=== PATIENT | male | born 1955 | race Caucasian/White ===

== ENCOUNTER 2016-08-31 14:29 | Outpatient (CLI) | payer OTHER ==
[2016-06-22 14:41] VITALS: BP 118/74
[2016-08-31 15:56] LABS: eGFR (African) > 60; eGFR (Non-African) > 60
--- NOTE | 2016-09-01 10:47 | OP Clinic Progress Note ---
REFERRING PHYSICIAN: Dr. Hortensia Noe REASON FOR VISIT: This 60-year-old male is seen in the clinic with nasal problems. He is accompanied by a farmhand whose first name is Carolee. The patient is somewhat disheveled and has a small hebert and mustache. He is a mouth breather during the entire time. His nasal tip is bent somewhat to the left side. The right nasal passage is nearly totally obstructed with right nasal septal deviation to some degree and also associated with the nasal deformity. He has diffuse rhinitis. He is having crusting. A 0 and 30-degree ZEISS endoscope was used. He has diffuse rhinitis. I do not see pus and I do not see polyps today. He has dripping out of his nostrils. Again, the patient's major complaint is dripping from his nostrils and diffuse rhinitis. Also of note, he does have scabbing and crusting and pasty skin consistent with low-grade fungal dermatitis. Clinically, he also has headaches overlying the forehead or ethmoid areas bilaterally. Overall, patient has diffuse rhinitis with rhinorrhea as the main issues. Currently, he is taking Keflex with zero improvement of his headaches or the rhinitis. IMPRESSION: There may be a reasonable probability that he has a fungal rhinitis along with his clinical fungal dermatitis of his face. PLAN: I have given him Diflucan 100 mg 3 times a week for 3 weeks. We will check on his liver function tests and I advised him to not being drinking alcohol. He understands the deleterious effects of it along with the Diflucan. He will also get a chemistry profile and CT scan of the sinuses. I will see him back in about 3 weeks for a re-evaluation. cc: Dr. Hortensia AGUDELO
== END 2016-08-31 14:30 ==
LOC: ENT 14:29
PROVIDERS: ATTEND Otolaryngology
DX: J31.0 Chronic rhinitis (principal)
CPT/HCPCS: 36415; 80053; G0463

== ENCOUNTER 2016-09-06 10:52 | Outpatient (CLI) | payer OTHER ==
[2016-06-22 14:41] VITALS: BP 118/74
--- NOTE | 2016-09-06 15:03 | Diagnostic Imaging Report ---
[facility] [address] [facility] [address] [place], [place]. [address] Report Submission Date: Sep 06, 2016 11:44:27 AM BROKE MAN Patient Study Name: NOEL YING Date: Sep 06, 2016 11:06:45 AM BROKE MAN Modality Type: CT\SR Gender: M Description: CT MAXILLOFACIAL W/O D : 51 Institution: [facility] Physician CARMEN JENNINGS CT of the paranasal sinuses CLINICAL HISTORY: Septal deviation. TECHNIQUE: CT of the paranasal sinuses is performed in contiguous axial slices with sagittal and coronal reconstructions. FINDINGS: Mucosal thickening is present in the maxillary sinuses bilaterally with patchy opacification of the ethmoid air cells. There is minimal mucosal thickening in the frontal and sphenoid sinuses. There is no air-fluid level or bony destruction. Nasal septum is deviated to the right with right septal spur contacting the lateral wall of the nasal cavity and the right inferior turbinate. Maxillary ostium is occluded by soft tissue density material bilaterally. IMPRESSION: Deviated nasal septum with right septal spur. Pansinusitis. Electronically signed on Sep 06, 2016 11:44:27 AM BROKE MAN by: Jcarlos AGUDELO
== END 2016-09-06 11:00 ==
LOC: RAD 10:52
PROVIDERS: ATTEND Otolaryngology
DX: J31.0 Chronic rhinitis (principal)
CPT/HCPCS: 70486

== ENCOUNTER 2016-09-28 13:55 | Outpatient (CLI) | payer OTHER ==
[2016-06-22 14:41] VITALS: BP 118/74
--- NOTE | 2016-10-03 11:30 | OP Clinic Progress Note ---
REFERRING PHYSICIAN: Dr. Hortensia Noe REASON FOR VISIT: Mr. Brito is seen accompanied by his mother. He has had chronic rhinitis and postnasal drainage and some degree of cephalalgia overlying the ethmoid areas bilaterally, and fullness in his face. He does have a septal deviation and chronic rhinitis. On the last visit, it looks as if he may well have had more of a chronic fungal rhinitis. He does smoke. He is a mouth breather. After taking the Diflucan 100 mg 3 times a week, he notes that he is fairly markedly improved. His mother voluntarily acknowledges that he does seem to be quite noticeably better. Using zero and 30-degree endoscopes, both nostrils were examined. Again, he still has septal deviation with some spurs. He has inflamed nasal membranes. All these are somewhat better than before. PLAN: I went over pros and cons of possible surgery, potential benefits and risks associated with it with no guarantee of improvement. Also went over the benefits of stopping smoking and the deleterious effects of it if he does not. With his permission and understanding of the potential hepatic issues, he was given another 100 mg of Diflucan, number 12, 1 on Monday, Monday, and Monday to take for this next month. I am not giving him a specific appointment. If he feels like he relapses or takes an interest in some sinonasal surgery, he can return. His mother volunteered information that maybe 60 years ago, she had sinonasal surgery and does tend to breathe better through her nose. She also feels like parts are falling out of her nose. She is asked to make and appointment on her own to come see me in the somewhat near future. cc: Dr. Hortensia AGUDELO
== END 2016-09-28 13:56 ==
LOC: ENT 13:55
PROVIDERS: ATTEND Otolaryngology
DX: J31.0 Chronic rhinitis (principal)
CPT/HCPCS: G0463

== ENCOUNTER 2016-12-07 15:51 | Outpatient (CLI) | payer OTHER ==
[2016-06-22 14:41] VITALS: BP 118/74
[2016-12-07 16:14] LABS: BASOPHILS % 0.6 (0.0-1.5); MEAN CORPUSCULAR HEMOGLOBIN 33.8 pg (28.0-34.0); MEAN CORPUSCULAR VOLUME 94.3 fl (80.0-100.0); MONOCYTES % 9.8 % (0.0-11.0); NEUTROPHILS # 4.2 # k/uL (1.4-7.7)
[2016-12-07 16:29] LABS: eGFR (African) > 60; eGFR (Non-African) > 60
--- NOTE | 2016-12-08 00:58 | Diagnostic Imaging Report ---
OLIVIA BORRERO [facility] [address] [facility] [address] [place], [place]. [address] Report Submission Date: Dec 07, 2016 5:33:21 PM CDT Patient Study Name: NOEL YING Date: Dec 07, 2016 4:05:23 PM CDT Modality Type: CR Gender: M Description: ABDOMEN : 51 Institution: [facility] Physician: OLIVIA BORRERO Examination: Abdomen History: Nausea vomiting Findings: 2 views obtained of the abdomen demonstrates dilated loops of small bowel. Stool and air throughout the large bowel but not abnormally dilated. Pelvic phleboliths. No overt air fluid level or free air given technique. Degenerative changes of the lumbar spine. Impression: Scattered dilated loops small bowel. Ileus vs obstruction - consider obtaining CT Abdomen/pelvis to further evaluate. Electronically signed on Dec 07, 2016 5:33:21 PM CDT by: Carlos AGUDELO
== END 2016-12-07 15:52 ==
LOC: RAD 15:51
PROVIDERS: ATTEND Family Medicine
DX: R11.0 Nausea (principal)
CPT/HCPCS: 36415; 74000; 80053; 85025

== ENCOUNTER 2017-05-27 16:39 | Inpatient (IN) | payer OTHER ==
--- NOTE | 2017-05-27 17:04 | ED Physician Documentation ---
General Adult - HISTORIAN Historian: patient - HPI Stated Complaint: cough Chief Complaint: Cough/ Upper Respiratory Onset: other (per sister cough and diarrhea x 2 weeks) Timing: worse Severity: moderate Further Comments: yes (mother at bedside states he was in the hospital recently for illness (not current symptoms) and had "a bunch of tests to see if he had a stroke" and she states they were not told he did or did not have a stroke. He has a cough and he has had diarrhea for two weeks. Not sure if he has had a fever. no chest pain) Last known Well Code/Unknown Code: Unknown - ROS CONST: recent illness. denies: fever, sweating EYES/ENT: denies: problems with vision, sore throat, nasal drainage, nasal congestion CVS/RESP: shortness of breath, cough. denies: chest pain GI/: nausea, diarrhea. denies: abdominal pain, problems urinating, vomiting MS/SKIN/LYMPH: none NEURO/PSYCH: denies: headache, dizziness - PAST HX Past History: other (Bipolar, seizures, HTN, ETOH, DJD, Depression and anxiety, Chronic back pain ) Other History: none Surgeries/Procedures: other Immunizations: referred to PCP Allergies/Adverse Reactions: Allergies Allergy/AdvReac Type Severity Reaction Status Date / Time acetaminophen Allergy Unknown Verified 05/27/17 17:02 aspirin Allergy Unknown Verified 05/27/17 17:02 haloperidol lactate Allergy Unknown Verified 05/27/17 17:02 lorazepam Allergy Unknown Verified 05/27/17 17:02 Home Medications: Ambulatory Orders Medication Instructions Recorded Benztropine Mesylate 1 mg PO HS u2 04/19/17 Bupropion HCl [Bupropion Xl] 150 mg PO DAILY u2 04/19/17 Bupropion HCl [Bupropion Xl] 300 mg PO DAILY u2 04/19/17 Hydroxyzine HCl [Hydroxyzine HCl] 10 mg PO HS 05/27/17 Paliperidone Palmitate [Invega 156 mg IM DIRECTED 05/27/17 Sustenna] Polyethylene Glycol 3350 [Miralax] 17 gm PO D 05/27/17 Propranolol HCl [Inderal] 20 mg PO TID PRN 05/27/17 diphenhydrAMINE HCL [Benadryl] 25 mg PO QSHIFT PRN 05/27/17 - SOCIAL HX Smoking History: cigarettes Alcohol Use: occasionally Drug Use: none - FAMILY HX Family History: Yes - VITAL SIGNS Vital Signs: Vital Signs Temp Pulse Resp BP Pulse Ox 118/74 06/22/16 14:40 - REVIEWED ASSESSMENTS Nursing Assessment Reviewed: Yes Vitals Reviewed: Yes Progress - Progress Progress: Per labs and possible pneumonia and increased WBC will admit pt for meds ED Results Lab/Radiology - Radiology Radiology Impressions: Chest 2 views History: Cough Findings: Emphysema and bibasilar reticular opacities are observed. There is no pleural effusion. Heart size is normal. Impression: 1. Emphysema. 2. Bibasilar reticular opacities likely represent bronchitis and atelectasis. Early bronchopneumonia cannot be excluded. Electronically signed on May 27, 2017 6:18:07 PM RETENTION MANAGER by: Riccardo Kamara General Adult Physical Exam - PHYSICAL EXAM GENERAL APPEARANCE: no distress EENT: eye inspection normal NECK: normal inspection RESPIRATORY: wheezes, rales CVS: reg rate & rhythm, heart sounds normal, tachycardia ABDOMEN: soft, normal bowel sounds, distended SKIN: warm/dry, normal color EXTREMITIES: non-tender, normal range of motion NEURO: oriented X3, CN's nml as tested, motor nml, sensation nml, mood/affect nml Discharge Clincal Impression: Pneumonia Qualifiers: Pneumonia type: due to unspecified organism Lung location: middle lobe of lung Referrals: Hortensia Noe MD [Primary Care Provider] - 2 Days Condition: Stable Disposition: 09 ADMITTED INPATIENT Decision to Admit: [id number] Date of Decison to Admit: 05/27/17 Decision Time: 18:37
[2017-05-27] MEDS ORDERED: LEVALBUTEROL HCL 1.25 MG/3 ML AMPUL.NEB NEB ONE (17:06)
[2017-05-27] MEDS ORDERED: 0.9 % SODIUM CHLORIDE 1,000 ML IV ONE (17:06)
[2017-05-27 17:42] LABS: MEAN CORPUSCULAR HEMOGLOBIN 31.6 pg (28.0-34.0); MEAN CORPUSCULAR VOLUME 93.3 fl (80.0-100.0)
[2017-05-27 18:15] LABS: eGFR (African) > 60; eGFR (Non-African) > 60
[2017-05-27] MEDS ORDERED: LEVOFLOXACIN 500MG/D5W 100ML 500 MG in PREMIX BAG 1 BAG IV ONE (18:24)
[2017-05-27] MEDS ORDERED: diphenhydrAMINE HCL 25 MG TABLET PO PRN (19:07)
[2017-05-27] MEDS ORDERED: PROPRANOLOL HCL 20 MG TABLET PO PRN (19:07)
[2017-05-27] MEDS ORDERED: 0.9 % SODIUM CHLORIDE 1,000 ML IV SCH (19:30)
--- NOTE | 2017-05-27 19:31 | Diagnostic Imaging Report ---
EVON LIM [facility] [address] [facility] [address] [place], [place]. [address] Report Submission Date: May 27, 2017 6:18:07 PM ORCHID HAND Patient Study Name: NOEL YING Date: May 27, 2017 5:56:42 PM ORCHID HAND Modality Type: CR Gender: M Description: CHEST : 51 Institution: [facility] Physician: EVON LIM Chest 2 views History: Cough Findings: Emphysema and bibasilar reticular opacities are observed. There is no pleural effusion. Heart size is normal. Impression: 1. Emphysema. 2. Bibasilar reticular opacities likely represent bronchitis and atelectasis. Early bronchopneumonia cannot be excluded. Electronically signed on May 27, 2017 6:18:07 PM ORCHID HAND by: Noel AGUDELO
--- NOTE | 2017-05-27 19:35 | Diagnostic Imaging Report ---
EVON LIM [facility] [address] [facility] [address] [place], [place]. [address] Report Submission Date: May 27, 2017 7:31:51 PM FILTER CLOTH MAKER Patient Study Name: NOEL YING Date: May 27, 2017 7:15:37 PM FILTER CLOTH MAKER Modality Type: CT\SR Gender: M Description: CT ANGIOGRAPHY CHEST 7 : 51 Institution: [facility] Physician: EVON LIM CT chest with contrast PE protocol. History: Elevated d-dimer. Cough Technique: Transaxial computed tomography images of the chest were obtained following the uneventful administration contrast according to CT PE protocol. Coronal and sagittal 3D mip images were obtained as part of the examination. Findings: The heart size is normal. The aorta is of normal course and caliber. There is no evidence of pulmonary embolism. There is atherosclerosis of the aorta . There is underlying centrilobular emphysematous changes present within the lungs. There is mild lingular and left basilar infiltrate present with mild bronchial wall thickening present lower lobe suggesting evidence of chronic bronchitis. There is no large pleural effusion or pneumothorax identified. Limited views the upper abdomen are unremarkable. The osseous structures are normal. Impression: 1. No evidence of pulmonary embolism. 2. Emphysematous change with evidence of chronic bronchitis with mild lingular segment and left lower lobe infiltrate. 3. Atherosclerosis. Electronically signed on May 27, 2017 7:31:51 PM FILTER CLOTH MAKER by: Jomar Burch [facility] HOSPITALMamta
[2017-05-27] MEDS: 0.9 % SODIUM CHLORIDE 1,000 ML IV SCH (19:52)
[2017-05-27] MEDS ORDERED: LEVOFLOXACIN 500MG/D5W 100ML 100 ML IV ONE (20:00)
[2017-05-27] MEDS: PANTOPRAZOLE SODIUM 40 MG TABLET PO SCH (21:14)
[2017-05-27] MEDS: LEVALBUTEROL HCL 1.25 MG/3 ML AMPUL.NEB NEB SCH (21:15)
[2017-05-27] MEDS: MONTELUKAST SODIUM 10 MG TABLET PO SCH (21:23)
[2017-05-27] MEDS: DOCUSATE SODIUM 100 MG CAPSULE PO SCH (21:23)
[2017-05-27 22:21] VITALS: BMI 29.0
[2017-05-28] MEDS ORDERED: LEVALBUTEROL HCL 1.25 MG/3 ML AMPUL.NEB NEB ONE ×2 (01:22→05:42)
[2017-05-28] MEDS: LEVALBUTEROL HCL 1.25 MG/3 ML AMPUL.NEB NEB SCH ×2 (01:27→06:17)
[2017-05-28] MEDS: IPRATROPIUM/ALBUTEROL SULFATE 3 ML AMPUL.NEB NEB SCH ×4 (01:30→22:18)
[2017-05-28] MEDS: PANTOPRAZOLE SODIUM 40 MG TABLET PO SCH (06:22)
[2017-05-28] MEDS: 0.9 % SODIUM CHLORIDE 1,000 ML IV SCH ×3 (06:30→17:47)
[2017-05-28 07:29] LABS: BASOPHILS % 0.4 (0.0-1.5); EOSINOPHILS % 0.6 % (0.0-6.8); MEAN CORPUSCULAR HEMOGLOBIN 31.6 pg (28.0-34.0); MEAN CORPUSCULAR VOLUME 93.8 fl (80.0-100.0)
[2017-05-28 07:42] LABS: eGFR (African) > 60; eGFR (Non-African) > 60
[2017-05-28] MEDS ORDERED: 0.9 % SODIUM CHLORIDE 50 ML IV ONE (08:05)
--- NOTE | 2017-05-28 08:12 | History and Physical Report ---
History of Present Illnes - History of Present Illness Reason for Visit: Pneumonia History of Present Illness: This is a 61 year old male patient of Dr. Costa who presented to the ER last evening with c/o cough and generalized weakness. He has felt flushed, but has not checked his temperature. He says that he has not felt well for about a week and a half, but has not sought out any medical care. Last evening, he was feeling worse and was brought to the ER by his mother. His d-dimer was elevated , and a CT chest with contrast was performed, and although he did not have a PE , he was noted to have a LLL pneumonia. It is of note that he was admitted to last month after experiencing mental status changes. He was noted on that hospitalization to have experienced a subarachnoid hemorrhage. Interval CT showed decrease in size of this lesion, and he was placed on a 7 day course of Keppra. He did not have any seizure activity during that hospitalization, although his bupropion was decreased to 150 mg a day due to the risk of lowering his seizure threshold. Neurosurgery was consulted, however he was treated conservatively and did not have any surgery. - Past Medical History Cardiac: HTN. denies: CAD, CHF, Hyperlipidemia, Valve insufficiency Pulmonary: Bronchitis. denies: Asthma, COPD Psych: Depression, Other (alcohol dependency) Musculoskeletal: Chronic low back pain ENT: Allergic rhinitis Renal/: Benign prostatic enlarg. - Past Surgical History Past Surgical History: Appendectomy - Past Social History Smoke: 1 pack per day (over), No Occupation: disabled Alcohol: Heavy Drugs: None Lives: Alone Domestic Violence: Negative - Health Maintenance Health Maintenance: Cholesterol, Influenza Vaccine, Pneumococcal Vaccine, Colonoscopy Influenza Vaccine: Current for this Influenza Season Pneumonia Vaccine: Yes Resuscitation Status: Resusciation Status Resuscitation Status Full Code Review of Systems - Review of Systems Constitutional: Fever, Chills Eyes: pain (chronic low back) ENT: negative: Ear Pain, Ear Discharge Respiratory: Cough, Shortness of Breath Cardiovascular: Palpitations. negative: Chest Pain Gastrointestinal: negative: Nausea, Vomiting Genitourinary: negative: Dysuria Musculoskeletal: Back Pain. negative: Neck Pain, Shoulder Pain Skin: negative: Rash Neurological: Weakness, Change in Speech - Medications/Allergies Allergies/Adverse Reactions: Allergies Allergy/AdvReac Type Severity Reaction Status Date / Time acetaminophen Allergy Unknown Verified 05/27/17 17:02 aspirin Allergy Unknown Verified 05/27/17 17:02 haloperidol lactate Allergy Unknown Verified 05/27/17 17:02 lorazepam Allergy Unknown Verified 05/27/17 17:02 Home Medications: Home Medications Hydroxyzine HCl [Hydroxyzine HCl] 10 mg PO HS 05/27/17 Paliperidone Palmitate [Invega Sustenna] 156 mg IM DIRECTED 05/27/17 Polyethylene Glycol 3350 [Miralax] 17 gm PO D 05/27/17 Propranolol HCl [Inderal] 20 mg PO TID PRN 05/27/17 diphenhydrAMINE HCL [Benadryl] 25 mg PO QSHIFT PRN 05/27/17 Current Inpatient Medications: Current Inpatient Medications Albuterol/Ipratropium (Duoneb) 3 ml NEB QID [facility] Bupropion HCl (Wellbutrin Sr) 450 mg PO BID [facility]ONATHAN Buspirone HCl (Buspar) 15 mg PO BID [facility] Ceftriaxone Sodium (Rocephin) 1 gm IV QD [facility] Diphenhydramine HCl (Benadryl) 25 mg PO QSHIFT PRN PRN Reason: Allergy Symptoms Docusate Sodium (Colace) 100 mg PO BID [facility] Last Admin: 05/27/17 21:23 Dose: 100 mg Ergocalciferol (Vitamin D2) 50,000 unit PO twice a week [facility] Hydrochlorothiazide (Hydrodiuril) 25 mg PO DAILY [facility] Hydroxyzine HCl (Atarax) 25 mg PO HS [facility] Sodium Chloride (Normal Saline) 1,000 mls @ 125 mls/hr IV Q8H [facility] Last Admin: 05/28/17 06:30 Dose: 125 mls/hr Azithromycin 250 mg/ Sodium (Chloride) 250 mls @ 125 mls/hr IV Q24H [facility] Stop: 06/07/17 07:59 Loratadine (Claritin) 10 mg PO DAILY [facility] Montelukast Sodium (Singulair) 10 mg PO HS [facility] Last Admin: 05/27/17 21:23 Dose: 10 mg Pantoprazole Sodium (Protonix) 40 mg PO 0700 [facility] Last Admin: 05/28/17 06:22 Dose: 40 mg Polyethylene Glycol (Miralax) 17 gm PO D [facility] Pregabalin (Lyrica) 150 mg PO BID [facility] Propranolol HCl (Inderal) 20 mg PO TID PRN PRN Reason: Anxiety Propranolol HCl (Inderal) 40 mg PO DAILY [facility]ONATH[facility] Exam - Exam Vital Signs: Vital Signs (72 hours) 05/27/17 05/27/17 05/27/17 19:03 19:13 21:00 Temperature 97.1 F L Pulse Rate 129 H 133 H Pulse Rate [ 128 H Pulse ox] Respiratory 18 Rate Blood Pressure [Left Arm] Blood Pressure 126/82 [Right Arm] O2 Sat by Pulse 95 94 Oximetry 05/27/17 05/28/17 05/28/17 22:00 00:00 01:28 Temperature 97.1 F L 97.9 F Pulse Rate 133 H 128 H 127 H Pulse Rate [ 128 H 127 H Pulse ox] Respiratory Rate Blood Pressure 118/74 [Left Arm] Blood Pressure 126/82 140/64 [Right Arm] O2 Sat by Pulse 94 95 Oximetry 05/28/17 05/28/17 04:00 06:00 Temperature 98.0 F Pulse Rate 116 H 117 H Pulse Rate [ 117 H Pulse ox] Respiratory Rate Blood Pressure [Left Arm] Blood Pressure 138/68 [Right Arm] O2 Sat by Pulse 94 Oximetry General: Alert, Oriented to Person, Cooperative, Discheveled HEENT: Atraumatic, PERRLA, EOMI, Edentulous Neck: No: Stridor, Rigidity Carotids: no bruits Thyroid: no masses Lungs: Wheezes, Prolonged Expiration, Decreased Air Movement Cardiovascular: Regular rate, Tachycardia Murmur: No: Systolic Murmur Abdomen: Normal bowel sounds, Soft, No tenderness, Other (RLQ scar from appendectomy) Genitourinary: No: Right Inguinal Hernia, Left Inguinal Hernia Male Genitourinary: No: Scrotal Edema Integumentary: Normal, Warm Extremities: No clubbing, No cyanosis, No edema Neurological: Other (slowed speech) Psych/Mental Status: Other (sleepy) - Laboratory Results Laboratory Results: Laboratory Results 05/27/17 05/28/17 05/28/17 19:20 07:25 07:25 WBC 8.80 RBC 4.16 Hgb 13.1 Hct 39.0 MCV 93.8 MCH 31.6 MCHC 33.7 RDW 13.0 Plt Count 242 Neut % (Auto) 79.5 H Lymph % (Auto) 8.5 L [place] % (Auto) 7.0 Eos % (Auto) 0.6 Baso % (Auto) 0.4 Neut # (Auto) 7.0 Lymph # (Auto) 0.8 [place] # (Auto) 0.6 Eos # (Auto) 0.0 Baso # (Auto) 0.0 Reactive Lymphs % 4.0 Reactive Lymphs # 0.4 PT 11.3 INR 1.08 Sodium 133 L Potassium 3.2 L Chloride 97 L Carbon Dioxide 26 BUN 22 H Creatinine 0.80 Estimated Creat Clear 109 Est GFR ( Amer) > 60 Est GFR (Non-Af Amer) > 60 Glucose 109 H Calcium 8.7 Total Bilirubin 0.6 AST 37 ALT 43 Alkaline Phosphatase 78 Total Protein 6.4 Albumin 3.0 L Assessment/Plan - Assessment/Plan (1) Pneumonia Status: Acute Current Visit: Yes Qualifiers: Pneumonia type: due to unspecified organism Laterality: left Lung location: lower lobe of lung Qualified Code(s): J18.1 - Lobar pneumonia, unspecified organism Assessment: On Rocephin and Azithromycin (2) Alcohol abuse Status: Acute Current Visit: Yes Assessment: Start Thiamine at 100 mg/day Watch for any evidence of alcohol withdrawal (patient denies that he has ever experienced this) and claims only to drink two drinks per day. (3) Subarachnoid hemorrhage Status: Acute Current Visit: Yes Assessment: Resolving Plan: Reviewed records from (4) Schizophrenia Status: Acute Current Visit: Yes Assessment: Currently on no antipsychotics, but has been on Invega Sustenna by Dr. Li in the past (5) Depression Status: Acute Current Visit: Yes Qualifiers: Depression Type: major depressive disorder Major depression recurrence: recurrent Active/Remission status: currently active Major depression episode severity: severe Psychotic features: with psychotic features Qualified Code(s): F33.3 - Major depressive disorder, recurrent, severe with psychotic symptoms Assessment: Continue bupropion at 450 mg/day (6) Bipolar 1 disorder Status: Acute Current Visit: Yes Assessment: Currently on no mood stabilizers due to poor compliance (7) Hypertension Status: Acute Current Visit: Yes Assessment: Continue propranolol (8) Tachycardia Status: Acute Current Visit: Yes Assessment: Likely due to pneumonia as well as nebulizer treatments (9) Elevated d-dimer Status: Acute Current Visit: Yes Assessment: Reviewed CT scan of the chest showing no PE VTE Assessment - RISK FACTOR SCORE VTE RISK FACTOR SCORES: AGE OVER 60 YEARS, ACUTE INFECTION OTHER THEN SEPSIS ( Started Lovenox) - RISK VTE MODERATE RISK: SCORE OF 2 (RISK PROXIMAL DVT 2-4%) PROPHYAXIS NEEDED
[2017-05-28] MEDS ORDERED: SALINE FLUSH 10 ML DISP.SYRIN IVF ONE (08:33)
[2017-05-28] MEDS ORDERED: 0.9 % SODIUM CHLORIDE 250 ML IV ONE (08:39)
[2017-05-28] MEDS ORDERED: AZITHROMYCIN 500 MG VIAL IV ONE (08:39)
[2017-05-28] MEDS ORDERED: IPRATROPIUM/ALBUTEROL SULFATE 3 ML AMPUL.NEB NEB ONE ×3 (08:44→16:58)
[2017-05-28] MEDS: BUSPIRONE HCL 5 MG TABLET PO SCH ×3 (08:47→19:33)
[2017-05-28] MEDS: HYDROCHLOROTHIAZIDE 25 MG TABLET PO SCH ×2 (08:48→08:58)
[2017-05-28] MEDS: LORATADINE 10 MG TABLET PO SCH ×2 (08:48→08:58)
[2017-05-28] MEDS: buPROPion 150 MG TABLET.ER PO SCH ×3 (08:49→19:32)
[2017-05-28] MEDS: PREGABALIN 50 MG CAPSULE PO SCH ×3 (08:49→19:33)
[2017-05-28] MEDS: PROPRANOLOL HCL 20 MG TABLET PO SCH ×2 (08:49→08:58)
[2017-05-28] MEDS: DOCUSATE SODIUM 100 MG CAPSULE PO SCH ×2 (08:50→19:33)
[2017-05-28] MEDS: ENOXAPARIN SODIUM 30 MG/0.3 ML DISP.SYRIN SQ SCH (08:50)
[2017-05-28] MEDS: POLYETHYLENE GLYCOL 3350 17 GM POWD.PACK PO SCH (08:51)
[2017-05-28] MEDS: cefTRIAXone SODIUM 1 GM VIAL IV SCH (08:51)
[2017-05-28] MEDS: AZITHROMYCIN 250 MG in 0.9 % SODIUM CHLORIDE 250 ML IV SCH (09:57)
[2017-05-28] MEDS: MONTELUKAST SODIUM 10 MG TABLET PO SCH (19:33)
[2017-05-28] MEDS: HYDROXYZINE HCL 25 MG TABLET PO SCH (19:33)
[2017-05-29] MEDS: 0.9 % SODIUM CHLORIDE 1,000 ML IV SCH ×3 (00:57→19:46)
[2017-05-29] MEDS ORDERED: IPRATROPIUM/ALBUTEROL SULFATE 3 ML AMPUL.NEB NEB ONE (05:56)
[2017-05-29] MEDS: PANTOPRAZOLE SODIUM 40 MG TABLET PO SCH (06:09)
[2017-05-29] MEDS: BUSPIRONE HCL 5 MG TABLET PO SCH (08:59)
[2017-05-29] MEDS: DOCUSATE SODIUM 100 MG CAPSULE PO SCH ×2 (08:59→19:48)
[2017-05-29] MEDS: LORATADINE 10 MG TABLET PO SCH (08:59)
[2017-05-29] MEDS: PROPRANOLOL HCL 20 MG TABLET PO SCH (09:00)
[2017-05-29] MEDS: HYDROCHLOROTHIAZIDE 25 MG TABLET PO SCH (09:00)
[2017-05-29] MEDS: ENOXAPARIN SODIUM 30 MG/0.3 ML DISP.SYRIN SQ SCH (09:01)
[2017-05-29] MEDS: buPROPion 150 MG TABLET.ER PO SCH (09:01)
[2017-05-29] MEDS: POLYETHYLENE GLYCOL 3350 17 GM POWD.PACK PO SCH (09:02)
[2017-05-29] MEDS: PREGABALIN 50 MG CAPSULE PO SCH ×2 (09:07→19:52)
[2017-05-29] MEDS: IPRATROPIUM/ALBUTEROL SULFATE 3 ML AMPUL.NEB NEB SCH ×4 (09:10→20:02)
[2017-05-29 10:02] LABS: MEAN CORPUSCULAR HEMOGLOBIN 31.6 pg (28.0-34.0); MEAN CORPUSCULAR VOLUME 94.6 fl (80.0-100.0)
[2017-05-29] MEDS: AZITHROMYCIN 250 MG in 0.9 % SODIUM CHLORIDE 250 ML IV SCH (10:15)
[2017-05-29 10:19] LABS: eGFR (African) > 60; eGFR (Non-African) > 60
[2017-05-29 10:38] LABS: EOSINOPHILS % 1 % (0-7); MONOCYTES % 11 % (0-11); SEGMENTED NEUTROPHILS % 70 % (39-79)
[2017-05-29] MEDS ORDERED: POTASSIUM CHLORIDE 20 MEQ TABLET.ER PO ONE (12:44)
[2017-05-29] MEDS: cefTRIAXone SODIUM 1 GM VIAL IV SCH (12:46)
[2017-05-29] MEDS: ERGOCALCIFEROL (VITAMIN D2) 50,000 UNIT CAPSULE PO SCH ×2 (12:57→15:47)
[2017-05-29] MEDS: cefTRIAXone SODIUM 1 GM in 0.9 % SODIUM CHLORIDE 100 ML IV SCH (13:01)
--- NOTE | 2017-05-29 13:57 | Diagnostic Imaging Report ---
[facility]MED SURG [facility] [address] [facility] [address] [address] Report Submission Date: May 29, 2017 9:01:18 AM FELT HAT MELLOWING MACHINE OPERATOR Patient Study Name: NOEL YING Date: May 29, 2017 8:24:52 AM FELT HAT MELLOWING MACHINE OPERATOR Modality Type: CR Gender: M Description: CHEST : 51 Institution: [facility] Physician: CHARLINE KAPADIA/MED SURG Examination: PA and lateral chest. History: Evaluate lung rosa. Comparison exam: 27 May 2017 Findings: PA lateral chest demonstrate a prominent cardiac and mediastinal silhouette. Continued parenchymal haziness involving the lower lungs, left greater than right. Apical emphysematous changes. Osseous structures are appropriate for age. Impression: Emphysematous changes. Persistent lingular/ left lower lung infiltrate. Electronically signed on May 29, 2017 9:01:18 AM FELT HAT MELLOWING MACHINE OPERATOR by: Carlos AGUDELO
--- NOTE | 2017-05-29 14:06 | Diagnostic Imaging Report ---
[facility] [address] [facility] [address] [place] [address]. [address] Report Submission Date: May 29, 2017 2:04:54 PM ASSEMBLY MEMBER Patient Study Name: NOEL YING Date: May 29, 2017 1:29:41 PM ASSEMBLY MEMBER Modality Type: CT\SR Gender: M Description: CT BRAIN W/O CONTRAST : 51 Institution: [facility] Physician: [facility] /MED SURG Examination: CT head without contrast History: Mental status changes Comparison exam: None available Technique: Noncontrast head CT protocol. Findings: Ventricles and sulci are prominent. Cerebrocerebellar parenchyma demonstrates periventricular low attenuation consistent with small vessel disease. No evidence for parenchymal hemorrhage. No evidence for mass or mass effect. No midline shift. No extra axial fluid collections. Partial visualization of the paranasal sinuses demonstrate scattered mucous thickening. Mastoid air cells, orbits, skull and scalp without gross irregularity. Impression: Age related changes. No acute parenchymal process. No hemorrhage. Correlation with prior studies recommended when become available. Electronically signed on May 29, 2017 2:04:54 PM ASSEMBLY MEMBER by: Carlos AGUDELO
[2017-05-29] MEDS: methylPREDNISolone SOD SUCC 40 MG/ML VIAL IVP SCH ×2 (15:34→19:53)
[2017-05-29] MEDS ORDERED: BUSPIRONE HCL 5 MG TABLET PO PRN (16:59)
--- NOTE | 2017-05-29 17:01 | Inpatient Progress Note ---
Subjective - Required Recertification Statement I anticipate X number of days because-include discharge plan: 3 - Review of Systems Subjective: Patient more somnolent today. Denies pain. Thinks breathing is better. Objective - Exam Vitals and I&O: Vital Signs Temp 98.1 F 05/29/17 13:55 Pulse 87 05/29/17 13:55 Resp 24 05/29/17 13:55 BP 137/63 05/29/17 13:55 Pulse Ox 94 05/29/17 13:55 Intake & Output 05/28/17 05/29/17 05/29/17 23:59 11:59 23:59 Intake Total 1780 2700 100 Balance 1780 2700 100 Weight 81.647 kg 81.647 kg Intake: IV 650 2650 Left Hand 650 2650 Oral 1130 50 100 Other: Voiding Method Toilet # Voids 3 3 General: Alert, Oriented to Person, Oriented to Place, Cooperative, No acute distress Lungs: Wheezes, Rhonchi Cardiovascular: Regular rate - Results Results: Laboratory Results WBC 9.80 K/ul (4.00-12.00) 05/29/17 09:50 RBC 3.95 M/ul (3.90-5.20) 05/29/17 09:50 Hgb 12.5 g/dL (12.0-18.0) 05/29/17 09:50 Hct 37.3 % (37.0-53.0) 05/29/17 09:50 MCV 94.6 fl (80.0-100.0) 05/29/17 09:50 MCH 31.6 pg (28.0-34.0) 05/29/17 09:50 MCHC 33.4 g/dL (30.0-36.0) 05/29/17 09:50 RDW 13.2 % (11.3-14.3) 05/29/17 09:50 Plt Count 285 K/mm3 (130-400) 05/29/17 09:50 Neut % (Auto) 79.5 % (39.0-79.0) H 05/28/17 07:25 Lymph % (Auto) 8.5 % (16.0-50.0) L 05/28/17 07:25 Warrick % (Auto) 7.0 % (0.0-11.0) 05/28/17 07:25 Eos % (Auto) 0.6 % (0.0-6.8) 05/28/17 07:25 Baso % (Auto) 0.4 (0.0-1.5) 05/28/17 07:25 Neut # (Auto) 7.0 # k/uL (1.4-7.7) 05/28/17 07:25 Lymph # (Auto) 0.8 # k/uL (0.6-4.0) 05/28/17 07:25 Warrick # (Auto) 0.6 # k/uL (0.0-0.9) 05/28/17 07:25 Eos # (Auto) 0.0 # k/uL (0.0-0.6) 05/28/17 07:25 Baso # (Auto) 0.0 # k/uL (0.0-0.5) 05/28/17 07:25 Seg Neutrophils % 70 % (39-79) 05/29/17 09:50 Band Neutrophils % 1 % (0-12) 05/29/17 09:50 Lymphocytes % 13 % (16-50) L 05/29/17 09:50 Reactive Lymphs % 4.0 % (0.0-5.0) 05/28/17 07:25 Monocytes % 11 % (0-11) 05/29/17 09:50 Eosinophils % 1 % (0-7) 05/29/17 09:50 Reactive Lymphs # 0.4 # k/uL (0.0-0.8) 05/28/17 07:25 Reactive Lymphocytes 4 % (0-5) 05/29/17 09:50 Plt Morphology Comment Normal (NORMAL) 05/29/17 09:50 RBC Morph Comment Normal (NORMAL) 05/29/17 09:50 PT 11.3 Seconds (9.4-11.6) 05/27/17 19:20 INR 1.08 (0.9-1.2) 05/27/17 19:20 D-Dimer > 5000 ng/mL (6.0-682) H 05/27/17 17:29 Sodium 132 mmol/L (136-145) L 05/29/17 09:50 Potassium 3.2 mmol/L (3.5-5.1) L 05/29/17 09:50 Chloride 98 mmol/L (98-107) 05/29/17 09:50 Carbon Dioxide 28 mmol/L (22-30) 05/29/17 09:50 BUN 14 mg/dL (9-20) 05/29/17 09:50 Creatinine 0.70 mg/dL (0.66-1.25) 05/29/17 09:50 Estimated Creat Clear 124 05/29/17 09:50 Est GFR ( Amer) > 60 (60-) 05/29/17 09:50 Est GFR (Non-Af Amer) > 60 (60-) 05/29/17 09:50 Glucose 111 mg/dL (74-106) H 05/29/17 09:50 Calcium 8.7 mg/dL (8.4-10.2) 05/29/17 09:50 Total Bilirubin 0.6 mg/dL (0.2-1.3) 05/28/17 07:25 AST 37 U/L (15-46) 05/28/17 07:25 ALT 43 U/L (13-69) 05/28/17 07:25 Alkaline Phosphatase 78 U/L (38-126) 05/28/17 07:25 Troponin I < 0.03 ng/mL (0.03-0.06) L 05/27/17 17:29 NT-Pro-B Natriuret Pep 180.6 pg/mL (15.0-125.0) H 05/27/17 17:29 Total Protein 6.4 g/dL (6.3-8.2) 05/28/17 07:25 Albumin 3.0 g/dL (3.5-5.0) L 05/28/17 07:25 Assessment/Plan - Assessment/Plan (1) Pneumonia Status: Acute Current Visit: Yes Qualifiers: Pneumonia type: due to unspecified organism Laterality: left Lung location: lower lobe of lung Qualified Code(s): J18.1 - Lobar pneumonia, unspecified organism Plan: Suspect COPD playing a role in lungs. Start IV solumedrol and make duonebs q4hr. CXR no worse. Suspect his wellbutrin ordered on admission is causing him to be somnolent. Will stop and watch closely. (2) Subarachnoid hemorrhage Status: Chronic Current Visit: No Plan: REpeat CT of head negative today.
[2017-05-29] MEDS: HYDROXYZINE HCL 25 MG TABLET PO SCH (19:47)
[2017-05-29] MEDS: MONTELUKAST SODIUM 10 MG TABLET PO SCH (19:53)
[2017-05-29] MEDS ORDERED: buPROPion 150 MG TABLET.ER PO SCH (21:00)
[2017-05-29] MEDS ORDERED: ACETAMINOPHEN 325 MG TABLET PO PRN (21:05)
[2017-05-29] MEDS ORDERED: ACETAMINOPHEN 325 MG TABLET ONE (21:06)
[2017-05-30] MEDS: IPRATROPIUM/ALBUTEROL SULFATE 3 ML AMPUL.NEB NEB SCH ×6 (01:23→20:13)
[2017-05-30] MEDS: 0.9 % SODIUM CHLORIDE 1,000 ML IV SCH ×2 (04:43→11:01)
[2017-05-30] MEDS: methylPREDNISolone SOD SUCC 40 MG/ML VIAL IVP SCH ×3 (06:10→19:42)
[2017-05-30] MEDS: PANTOPRAZOLE SODIUM 40 MG TABLET PO SCH (06:10)
[2017-05-30 06:41] LABS: MEAN CORPUSCULAR VOLUME 94.6 fl (80.0-100.0)
[2017-05-30 07:19] LABS: SEGMENTED NEUTROPHILS % 81 % (39-79)
[2017-05-30 07:20] LABS: BASOPHILS % 1 % (0-2); EOSINOPHILS % 1 % (0-7); MONOCYTES % 4 % (0-11)
[2017-05-30 07:21] LABS: eGFR (African) > 60; eGFR (Non-African) > 60
--- NOTE | 2017-05-30 08:06 | Inpatient Progress Note ---
Subjective - Required Recertification Statement I anticipate X number of days because-include discharge plan: 2 - Review of Systems Subjective: Patient more awake and alert today. Talking more. Mild confusion. Denies SOB. Objective - Exam Vitals and I&O: Vital Signs Temp 97.6 F 05/30/17 06:00 Pulse 101 H 05/30/17 06:00 Resp 20 05/30/17 06:00 BP 126/65 05/30/17 06:00 Pulse Ox 96 05/30/17 06:00 Intake & Output 05/29/17 05/29/17 05/30/17 11:59 23:59 11:59 Intake Total 2950 1720 1220 Output Total 200 Balance 2950 1720 1020 Weight 81.647 kg 81.647 kg 180 kg Intake: IV 2900 1375 1100 Left Forearm 125 1100 Left Hand 2900 1250 Oral 50 345 120 Output: Urine 200 Stool 0 Other: Voiding Method Diaper Diaper # Voids 3 1 1 # Bowel Movements 0 General: Alert, Oriented to Person, Cooperative. No: Oriented to Place, Oriented to Time Lungs: Clear to auscultation, Normal air movement, Speaks full Sentences - Results Results: Laboratory Results WBC 9.40 K/ul (4.00-12.00) 05/30/17 06:10 RBC 3.92 M/ul (3.90-5.20) 05/30/17 06:10 Hgb 12.2 g/dL (12.0-18.0) 05/30/17 06:10 Hct 37.1 % (37.0-53.0) 05/30/17 06:10 MCV 94.6 fl (80.0-100.0) 05/30/17 06:10 MCH 31.0 pg (28.0-34.0) 05/30/17 06:10 MCHC 32.8 g/dL (30.0-36.0) 05/30/17 06:10 RDW 13.0 % (11.3-14.3) 05/30/17 06:10 Plt Count 287 K/mm3 (130-400) 05/30/17 06:10 Neut % (Auto) 79.5 % (39.0-79.0) H 05/28/17 07:25 Lymph % (Auto) 8.5 % (16.0-50.0) L 05/28/17 07:25 Chicot % (Auto) 7.0 % (0.0-11.0) 05/28/17 07:25 Eos % (Auto) 0.6 % (0.0-6.8) 05/28/17 07:25 Baso % (Auto) 0.4 (0.0-1.5) 05/28/17 07:25 Neut # (Auto) 7.0 # k/uL (1.4-7.7) 05/28/17 07:25 Lymph # (Auto) 0.8 # k/uL (0.6-4.0) 05/28/17 07:25 Chicot # (Auto) 0.6 # k/uL (0.0-0.9) 05/28/17 07:25 Eos # (Auto) 0.0 # k/uL (0.0-0.6) 05/28/17 07:25 Baso # (Auto) 0.0 # k/uL (0.0-0.5) 05/28/17 07:25 Seg Neutrophils % 81 % (39-79) H 05/30/17 06:10 Band Neutrophils % 2 % (0-12) 05/30/17 06:10 Lymphocytes % 11 % (16-50) L 05/30/17 06:10 Reactive Lymphs % 4.0 % (0.0-5.0) 05/28/17 07:25 Monocytes % 4 % (0-11) 05/30/17 06:10 Eosinophils % 1 % (0-7) 05/30/17 06:10 Basophils % 1 % (0-2) 05/30/17 06:10 Reactive Lymphs # 0.4 # k/uL (0.0-0.8) 05/28/17 07:25 Reactive Lymphocytes 4 % (0-5) 05/29/17 09:50 Plt Morphology Comment Normal (NORMAL) 05/30/17 06:10 RBC Morph Comment Normal (NORMAL) 05/30/17 06:10 PT 11.3 Seconds (9.4-11.6) 05/27/17 19:20 INR 1.08 (0.9-1.2) 05/27/17 19:20 D-Dimer > 5000 ng/mL (6.0-682) H 05/27/17 17:29 Sodium 134 mmol/L (136-145) L 05/30/17 06:10 Potassium 3.9 mmol/L (3.5-5.1) 05/30/17 06:10 Chloride 101 mmol/L (98-107) 05/30/17 06:10 Carbon Dioxide 26 mmol/L (22-30) 05/30/17 06:10 BUN 15 mg/dL (9-20) 05/30/17 06:10 Creatinine 0.70 mg/dL (0.66-1.25) 05/30/17 06:10 Estimated Creat Clear 275 05/30/17 06:10 Est GFR ( Amer) > 60 (60-) 05/30/17 06:10 Est GFR (Non-Af Amer) > 60 (60-) 05/30/17 06:10 Glucose 119 mg/dL (74-106) H 05/30/17 06:10 Calcium 8.3 mg/dL (8.4-10.2) L 05/30/17 06:10 Total Bilirubin 0.4 mg/dL (0.2-1.3) 05/30/17 06:10 AST 42 U/L (15-46) 05/30/17 06:10 ALT 62 U/L (13-69) 05/30/17 06:10 Alkaline Phosphatase 74 U/L (38-126) 05/30/17 06:10 Troponin I < 0.03 ng/mL (0.03-0.06) L 05/27/17 17:29 NT-Pro-B Natriuret Pep 180.6 pg/mL (15.0-125.0) H 05/27/17 17:29 Total Protein 5.3 g/dL (6.3-8.2) L 05/30/17 06:10 Albumin 2.5 g/dL (3.5-5.0) L 05/30/17 06:10 Assessment/Plan - Assessment/Plan (1) Pneumonia Status: Acute Current Visit: Yes Qualifiers: Pneumonia type: due to unspecified organism Laterality: left Lung location: lower lobe of lung Qualified Code(s): J18.1 - Lobar pneumonia, unspecified organism Plan: Add IS today. Lung sounds much improved on steroids and q4hr duonebs. Continue IV antibiotics until good PO intake. (2) Subarachnoid hemorrhage Status: Chronic Current Visit: No
[2017-05-30] MEDS ORDERED: BISACODYL 5 MG TABLET.DR PO PRN (08:09)
[2017-05-30] MEDS: AZITHROMYCIN 250 MG in 0.9 % SODIUM CHLORIDE 250 ML IV SCH (09:04)
[2017-05-30] MEDS: DOCUSATE SODIUM 100 MG CAPSULE PO SCH ×2 (09:09→19:44)
[2017-05-30] MEDS: LORATADINE 10 MG TABLET PO SCH (09:09)
[2017-05-30] MEDS: HYDROCHLOROTHIAZIDE 25 MG TABLET PO SCH (09:09)
[2017-05-30] MEDS: POLYETHYLENE GLYCOL 3350 17 GM POWD.PACK PO SCH (09:10)
[2017-05-30] MEDS: ENOXAPARIN SODIUM 30 MG/0.3 ML DISP.SYRIN SQ SCH (09:10)
[2017-05-30] MEDS: PREGABALIN 50 MG CAPSULE PO SCH ×2 (09:12→19:48)
[2017-05-30] MEDS: PROPRANOLOL HCL 20 MG TABLET PO SCH (09:13)
[2017-05-30] MEDS ORDERED: SALINE FLUSH 10 ML DISP.SYRIN IVF ONE (12:22)
[2017-05-30] MEDS: cefTRIAXone SODIUM 1 GM in 0.9 % SODIUM CHLORIDE 100 ML IV SCH (12:28)
[2017-05-30] MEDS: MONTELUKAST SODIUM 10 MG TABLET PO SCH (19:44)
[2017-05-30] MEDS: HYDROXYZINE HCL 25 MG TABLET PO SCH (19:44)
[2017-05-31] MEDS: 0.9 % SODIUM CHLORIDE 1,000 ML IV SCH (01:00)
[2017-05-31] MEDS: IPRATROPIUM/ALBUTEROL SULFATE 3 ML AMPUL.NEB NEB SCH ×4 (01:10→13:23)
[2017-05-31] MEDS: methylPREDNISolone SOD SUCC 40 MG/ML VIAL IVP SCH ×2 (05:45→13:22)
[2017-05-31] MEDS: PANTOPRAZOLE SODIUM 40 MG TABLET PO SCH (05:45)
[2017-05-31 06:45] LABS: MEAN CORPUSCULAR HEMOGLOBIN 30.9 pg (28.0-34.0); MEAN CORPUSCULAR VOLUME 93.7 fl (80.0-100.0)
[2017-05-31 06:55] LABS: eGFR (African) > 60; eGFR (Non-African) > 60
[2017-05-31 07:28] LABS: BASOPHILS % 1 % (0-2); EOSINOPHILS % 1 % (0-7); MONOCYTES % 5 % (0-11); SEGMENTED NEUTROPHILS % 80 % (39-79)
[2017-05-31] MEDS ORDERED: MAGNESIUM CITRATE 296 ML BOTTLE PO ONE (07:57)
[2017-05-31] MEDS: AZITHROMYCIN 250 MG in 0.9 % SODIUM CHLORIDE 250 ML IV SCH (08:57)
[2017-05-31] MEDS: LORATADINE 10 MG TABLET PO SCH (09:12)
[2017-05-31] MEDS: DOCUSATE SODIUM 100 MG CAPSULE PO SCH (09:12)
[2017-05-31] MEDS: PROPRANOLOL HCL 20 MG TABLET PO SCH (09:13)
[2017-05-31] MEDS: HYDROCHLOROTHIAZIDE 25 MG TABLET PO SCH (09:13)
[2017-05-31] MEDS: ENOXAPARIN SODIUM 30 MG/0.3 ML DISP.SYRIN SQ SCH (09:13)
[2017-05-31] MEDS: POLYETHYLENE GLYCOL 3350 17 GM POWD.PACK PO SCH (09:14)
[2017-05-31] MEDS: PREGABALIN 50 MG CAPSULE PO SCH (09:16)
--- NOTE | 2017-05-31 11:07 | Diagnostic Imaging Report ---
OLIVIA BORRERO [facility] [address] [facility].[address] [address] Report Submission Date: May 31, 2017 8:44:06 AM VEHICLE FARE COLLECTOR Patient Study Name: NOEL YING Date: May 31, 2017 8:24:09 AM VEHICLE FARE COLLECTOR Modality Type: US Gender: M Description: US ABD LIMITED : 51 Institution: [facility] Physician: OLIVIA BORRERO Examination: Ultrasound abdomen History: Possible sites. Bloating. Comparison exams: None available. Findings: Sonographic evaluation of the abdomen and all 4 quadrants does not demonstrate evidence for free fluid collection. No other gross abnormality identified. Impression: No evidence for free fluid/acites. Electronically signed on May 31, 2017 8:44:06 AM VEHICLE FARE COLLECTOR by: Carlos AGUDELO
--- NOTE | 2017-05-31 11:07 | Diagnostic Imaging Report ---
[facility]MED SURG [facility] [address] [facility] [address] [address] Report Submission Date: May 31, 2017 8:38:36 AM PIGMENT FURNACE TENDER Patient Study Name: NOEL YING Date: May 31, 2017 8:14:01 AM PIGMENT FURNACE TENDER Modality Type: CR Gender: M Description: ABDOMEN : 51 Institution: [facility] Physician: CHARLINE KAPADIA/MED SURG Examination: Obstruction series History: Abdominal discomfort Findings: 3 views obtained of the abdomen. Significant dilation of the large and small bowel. Air and stool throughout the large bowel. No suspicious calcifications projecting over the renal fossa or the lower pelvic region. pelvic phleboliths. Degenerative disease of the lumbar spine. Impression: Significant dilation/prominence of the large/small bowel - obstruction /high-grade ileus. Correlate clinically. Electronically signed on May 31, 2017 8:38:36 AM PIGMENT FURNACE TENDER by: Carlos AGUDELO
[2017-05-31] MEDS: cefTRIAXone SODIUM 1 GM in 0.9 % SODIUM CHLORIDE 100 ML IV SCH (12:29)
[2017-05-31] MEDS ORDERED: SALINE FLUSH 10 ML DISP.SYRIN IVF ONE ×2 (12:37→15:36)
--- NOTE | 2017-05-31 14:42 | Diagnostic Imaging Report ---
[facility] [address] [facility] [address] [place] [address]. [address] Report Submission Date: May 31, 2017 2:12:52 PM VASCULAR MANAGER Patient Study Name: NOEL YING Date: May 31, 2017 1:18:57 PM VASCULAR MANAGER Modality Type: CT\SR Gender: M Description: CT ABD & PELVIS W/ CON : 51 Institution: [facility] Physician: [facility]/MED SURG Examination: CT Abdomen/pelvis History: Bloating. Comparison exams: Plain film dated 31 May 2017 Technique: CT Abdomen/pelvis with IV protocol. Findings: Liver demonstrates diffuse low attenuation. No central lesion. Gallbladder contracted. No obvious gallstone. Spleen without abnormality. Kidneys are symmetric in size. No cortical or calyceal calcification. Cyst projecting off the inferior margin of the right kidney. 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 Ureters are nondilated in their course through the abdomen and pelvis. No central calcification. Bladder margin is within normal limits. Adrenal glands not enlarged. Abdominal aorta demonstrates peripheral described disease. No aneurysm. Cardiac silhouette not enlarged. Pericardial fluid. Significant dilatation of the mid abdominal small bowel associated with air- fluid levels. Maximum diameter of 4.4 cm. Transition point appears to be within the mid to distal small bowel region. Stool throughout the large bowel limiting sensitivity. Small amount of mesenteric inflammatory changes/stranding. No overt fluid collection. Surgical changes in the region of the cecum. Osseous structures demonstrate degenerative changes. Lung bases demonstrate bibasilar consolidative processes,left greater than right, associated with posterior pleural effusions. Impression: Small bowel obstruction - transition point midabdomen. Surgical consultation recommended if not already obtained. Pericardial effusion. Bibasilar infiltrates and effusions, left greater than right. Discussed findings with nurse Lorena at 1408 hours on 31 May 2017 CDT - She said she would contact Dr. Noe with the findings. Electronically signed on May 31, 2017 2:12:52 PM VASCULAR MANAGER by: Carlos AGUDELO
[2017-05-31 18:44] VITALS: BP 132/79
--- NOTE | 2017-05-31 20:07 | Discharge Summary ---
Discharge Summary - Discharge Sumary History of Present Illness: This is a 61 year old male patient of Dr. Costa who presented to the ER last evening with c/o cough and generalized weakness. He has felt flushed, but has not checked his temperature. He says that he has not felt well for about a week and a half, but has not sought out any medical care. Last evening, he was feeling worse and was brought to the ER by his mother. His d-dimer was elevated , and a CT chest with contrast was performed, and although he did not have a PE , he was noted to have a LLL pneumonia. It is of note that he was admitted to last month after experiencing mental status changes. He was noted on that hospitalization to have experienced a subarachnoid hemorrhage. Interval CT showed decrease in size of this lesion, and he was placed on a 7 day course of Keppra. He did not have any seizure activity during that hospitalization, although his bupropion was decreased to 150 mg a day due to the risk of lowering his seizure threshold. Neurosurgery was consulted, however he was treated conservatively and did not have any surgery. Condition at Discharge: Stable Home Medications: Ambulatory Orders Medication Instructions Recorded Benztropine Mesylate 1 mg PO HS u2 04/19/17 Bupropion HCl [Bupropion Xl] 150 mg PO DAILY u2 04/19/17 Bupropion HCl [Bupropion Xl] 300 mg PO DAILY u2 04/19/17 Hydroxyzine HCl 10 mg PO HS 05/27/17 Paliperidone Palmitate [Invega 156 mg IM DIRECTED 05/27/17 Sustenna] Polyethylene Glycol 3350 [Miralax] 17 gm PO D 05/27/17 Propranolol HCl [Inderal] 20 mg PO TID PRN 05/27/17 diphenhydrAMINE HCL [Benadryl] 25 mg PO QSHIFT PRN 05/27/17 Consultations this Visit: None Procedures this Visit: None Allergies/Adverse Reactions: Allergies Allergy/AdvReac Type Severity Reaction Status Date / Time acetaminophen Allergy Unknown Verified 05/27/17 17:02 aspirin Allergy Unknown Verified 05/27/17 17:02 haloperidol lactate Allergy Unknown Verified 05/27/17 17:02 lorazepam Allergy Unknown Verified 05/27/17 17:02 Discharge Summary: Patient was admitted to Acute Care for treatment of pneumonia and hypoxia. Treated with IV rocephin 1 gm daily and 5 days of IV zithromax. Blood cultures at 72 hours grew staph hominins. Patient also received IV solumedrol and scheduled duonebs. Wheezing responded well to this. He did experience some somnolance so wellbutrin was discontinued. This resolved. Abdomen noted to be distended. Patient with h/o alcoholism. Reported no BM in a week. Good bowel sounds. Dulcolax was given without results. On the day of transfer, abdomen more distended. He reported passing gas and smear of BM. Bowel sounds still hear. KUB and cT showed small bowel obstruction. WBC went back to 12,000 (however patient on solumedrol). Sodium dropped to 131 and LFT's very mildly elevated. NG inserted and patient transferred to [facility] for treatment. Hospital Course: Discharge Dx: SBO. pneumonia. Bipolar. h/o subarachnoid hemorrhage. Disp - [facility]
== END 2017-05-31 16:05 | disposition short-term general hospital (02) | DRG 193 ==
LOC: ED 16:39 → SOUTH 18:37
PROVIDERS: ADMIT Family Medicine; ATTEND Family Medicine
DX: J18.1 Lobar pneumonia, unspecified organism (principal); I60.9 Nontraumatic subarachnoid hemorrhage, unspecified; F33.3 Major depressive disorder, recurrent, severe with psychotic symptoms; R09.02 Hypoxemia; J43.9 Emphysema, unspecified; F17.210 Nicotine dependence, cigarettes, uncomplicated; I10 Essential (primary) hypertension; F10.20 Alcohol dependence, uncomplicated; R00.0 Tachycardia, unspecified; R79.1 Abnormal coagulation profile
CPT/HCPCS: 36415; 70450; 71020; 71260; 74000; 74177; 76705; 80048; 80053; 83880; 84484; 85025; 85027; 85379; 85610; 87040; 87186; 93005; 97116; 97166; 97530; 97535; A9270; J0456; J0696; J1650; J1956; J2920; J7030; J7050; J7614; 99223; 99232; 99238; 99283; 99284; Q9967; J1030; S1016

== ENCOUNTER 2017-06-06 13:50 | Inpatient (IN) | payer OTHER ==
[2017-06-06 14:50] VITALS: BMI 19.0
--- NOTE | 2017-06-06 15:00 | History and Physical Report ---
History of Present Illnes - History of Present Illness Reason for Visit: Weakness History of Present Illness: Patient originally admitted here several weeks ago with pneumonia. Developed abdominal bloating - CT showed SBO. He was transferred to [facility]. There the surgeon did not think he had SBO but instead an ileus. He responded well to NG tube. Stools have remained soft - last one was yesterday. Currently on miralax. Pneumonia resolving. Back to RA and off O2. Finishing Levaquin and Flagyl tonight. He did have maxzide added to his medications which has helped control BP and swelling. Feeling ok today - just weak. Will be admitted to SNF for PT/OT. - Past Medical History Cardiac: HTN. denies: CAD, CHF, Hyperlipidemia, Valve insufficiency Pulmonary: Bronchitis. denies: Asthma, COPD Psych: Depression, Other (alcohol dependency) Musculoskeletal: Chronic low back pain ENT: Allergic rhinitis Renal/: Benign prostatic enlarg. - Past Surgical History Past Surgical History: Appendectomy - Past Family History Mother Family History: CAD, CVA, Hypertension. denies: Father Family History: (37yo, pulmonary fungal infection) - Past Social History Smoke: 1 pack per day (over), No Occupation: disabled Alcohol: Heavy Drugs: None Lives: Alone Domestic Violence: Negative - Health Maintenance Health Maintenance: Cholesterol, Influenza Vaccine, Pneumococcal Vaccine, Colonoscopy Influenza Vaccine: Current for this Influenza Season Pneumonia Vaccine: Yes Resuscitation Status: Resusciation Status Resuscitation Status Full Code Review of Systems - Review of Systems Constitutional: Weakness. negative: Fever Eyes: negative: pain ENT: negative: Ear Pain Respiratory: negative: Cough, Shortness of Breath Cardiovascular: negative: Chest Pain Gastrointestinal: negative: Nausea, Vomiting, Abdominal Pain, Diarrhea, Constipation Genitourinary: negative: Dysuria Musculoskeletal: Back Pain Skin: negative: Rash Neurological: Weakness - Medications/Allergies Allergies/Adverse Reactions: Allergies Allergy/AdvReac Type Severity Reaction Status Date / Time acetaminophen Allergy Unknown Verified 05/27/17 17:02 aspirin Allergy Unknown Verified 05/27/17 17:02 haloperidol lactate Allergy Unknown Verified 05/27/17 17:02 lorazepam Allergy Unknown Verified 05/27/17 17:02 Exam - Exam Vital Signs: Vital Signs (72 hours) 06/06/17 14:15 Temperature 97.1 F L Pulse Rate [ 79 Pulse ox] Respiratory 20 Rate Blood Pressure 89/65 [Right Arm] O2 Sat by Pulse 94 Oximetry General: Alert, Oriented to Person, Oriented to Place, Oriented to Time, Cooperative, No acute distress HEENT: Atraumatic, PERRLA, EOMI, Mouth Mucous membr. moist/Storla, Nose Mucous membr. moist/Storla Neck: Normal Range of Motion Lungs: Clear to auscultation Cardiovascular: Regular rate Abdomen: Normal bowel sounds, Distended Integumentary: Normal Extremities: No edema Neurological: Generalized Weakness Psych/Mental Status: Mental status NL, Mood NL, Appropriate Affect, Intact Judgment Assessment/Plan - Assessment/Plan (1) Weakness Status: Acute Current Visit: Yes Plan: Admit for PT/OT eval and treat. (2) Ileus Status: Resolved Current Visit: No Plan: Resolved. (3) Bipolar 1 disorder Status: Chronic Current Visit: No Plan: Patient will need INvega at [facility] when discharged. (4) Hypertension Status: Chronic Current Visit: No Qualifiers: Hypertension type: essential hypertension Qualified Code(s): I10 - Essential (primary) hypertension Plan: Watch on new regimen. (5) Schizophrenia Status: Chronic Current Visit: No Qualifiers: Schizophrenia type: unspecified Qualified Code(s): F20.9 - Schizophrenia, unspecified (6) Subarachnoid hemorrhage Status: Resolved Current Visit: No VTE Assessment - RISK FACTOR SCORE VTE RISK FACTOR SCORES: AGE OVER 60 YEARS - RISK VTE LOW RISK: SCORE OF 1 OR LESS (RISK PROXIMAL DVT 0.4%) NO PROPHYLAXIS NEEDED
[2017-06-06] MEDS ORDERED: HYDROcodone /APAP 5/325 1 EACH TABLET PO PRN (17:58)
[2017-06-06] MEDS ORDERED: BISACODYL 5 MG TABLET.DR PO PRN (17:58)
[2017-06-06] MEDS ORDERED: ERGOCALCIFEROL (VITAMIN D2) 50,000 UNIT CAPSULE PO SCH (18:00)
[2017-06-06] MEDS: diphenhydrAMINE HCL 25 MG TABLET PO SCH (18:13)
[2017-06-06] MEDS: metroNIDAZOLE 500 MG TABLET PO SCH (18:16)
[2017-06-06] MEDS: TRIAMTERENE/HCTZ 1 EACH CAP PO SCH (18:22)
[2017-06-06] MEDS: PREGABALIN 50 MG CAPSULE PO SCH ×2 (18:22→20:02)
[2017-06-06] MEDS: BUSPIRONE HCL 5 MG TABLET PO SCH ×2 (18:23→20:02)
[2017-06-06] MEDS ORDERED: LEVOFLOXACIN 250 MG TABLET PO ONE (19:54)
[2017-06-06] MEDS: HYDROXYZINE HCL 25 MG TABLET PO SCH (19:58)
[2017-06-06] MEDS: BENZTROPINE MESYLATE 0.5 MG TAB PO SCH ×2 (19:59→20:42)
[2017-06-06] MEDS: MONTELUKAST SODIUM 10 MG TABLET PO SCH (19:59)
[2017-06-06] MEDS ORDERED: PHARMACY KEY 1 EACH EACH MC ONE (20:24)
[2017-06-06] MEDS ORDERED: LEVOFLOXACIN 500 MG TABLET PO SCH ×2 (21:00)
[2017-06-07] MEDS: diphenhydrAMINE HCL 25 MG TABLET PO SCH ×3 (01:31→11:52)
[2017-06-07] MEDS: PANTOPRAZOLE SODIUM 40 MG TABLET PO SCH (06:22)
[2017-06-07] MEDS ORDERED: LEVOFLOXACIN 500 MG TABLET PO SCH ×2 (09:00)
[2017-06-07] MEDS: metroNIDAZOLE 500 MG TABLET PO SCH (09:39)
[2017-06-07] MEDS: POLYETHYLENE GLYCOL 3350 17 GM POWD.PACK PO SCH (09:39)
[2017-06-07] MEDS: buPROPion 150 MG TABLET.ER PO SCH (09:39)
[2017-06-07] MEDS: BUSPIRONE HCL 5 MG TABLET PO SCH ×2 (09:39→20:21)
[2017-06-07] MEDS: PREGABALIN 50 MG CAPSULE PO SCH ×2 (09:44→20:21)
[2017-06-07] MEDS: PROPRANOLOL HCL 20 MG TABLET PO PRN (10:23)
[2017-06-07] MEDS: IBUPROFEN 400 MG TABLET PO PRN (11:52)
[2017-06-07] MEDS: TRIAMTERENE/HCTZ 1 EACH CAP PO SCH (19:02)
[2017-06-07] MEDS: HYDROXYZINE HCL 25 MG TABLET PO SCH (20:21)
[2017-06-07] MEDS: MONTELUKAST SODIUM 10 MG TABLET PO SCH (20:22)
[2017-06-07] MEDS: BENZTROPINE MESYLATE 0.5 MG TAB PO SCH (20:47)
[2017-06-07] MEDS: ERGOCALCIFEROL (VITAMIN D2) 50,000 UNIT CAPSULE PO SCH (23:35)
[2017-06-08] MEDS: PANTOPRAZOLE SODIUM 40 MG TABLET PO SCH (06:40)
[2017-06-08] MEDS: PREGABALIN 50 MG CAPSULE PO SCH ×2 (09:00→19:48)
[2017-06-08] MEDS: POLYETHYLENE GLYCOL 3350 17 GM POWD.PACK PO SCH (09:00)
[2017-06-08] MEDS: BUSPIRONE HCL 5 MG TABLET PO SCH ×2 (09:01→19:47)
[2017-06-08] MEDS: buPROPion 150 MG TABLET.ER PO SCH (09:01)
[2017-06-08] MEDS: IBUPROFEN 400 MG TABLET PO PRN (16:38)
[2017-06-08] MEDS: TRIAMTERENE/HCTZ 1 EACH CAP PO SCH (18:52)
[2017-06-08] MEDS: HYDROXYZINE HCL 25 MG TABLET PO SCH (19:47)
[2017-06-08] MEDS: BENZTROPINE MESYLATE 0.5 MG TAB PO SCH (19:48)
[2017-06-08] MEDS: MONTELUKAST SODIUM 10 MG TABLET PO SCH (19:49)
[2017-06-09] MEDS: PANTOPRAZOLE SODIUM 40 MG TABLET PO SCH (06:10)
[2017-06-09] MEDS: BUSPIRONE HCL 5 MG TABLET PO SCH ×2 (09:36→20:31)
[2017-06-09] MEDS: POLYETHYLENE GLYCOL 3350 17 GM POWD.PACK PO SCH (09:36)
[2017-06-09] MEDS: PREGABALIN 50 MG CAPSULE PO SCH ×2 (09:36→20:34)
[2017-06-09] MEDS: PROPRANOLOL HCL 20 MG TABLET PO PRN (15:32)
[2017-06-09] MEDS: IBUPROFEN 400 MG TABLET PO PRN (15:32)
[2017-06-09] MEDS: ERGOCALCIFEROL (VITAMIN D2) 50,000 UNIT CAPSULE PO SCH (17:59)
[2017-06-09] MEDS: TRIAMTERENE/HCTZ 1 EACH CAP PO SCH (18:00)
[2017-06-09] MEDS: BENZTROPINE MESYLATE 0.5 MG TAB PO SCH (20:30)
[2017-06-09] MEDS: HYDROXYZINE HCL 25 MG TABLET PO SCH (20:31)
[2017-06-09] MEDS: MONTELUKAST SODIUM 10 MG TABLET PO SCH (20:31)
[2017-06-10] MEDS: PANTOPRAZOLE SODIUM 40 MG TABLET PO SCH (06:11)
[2017-06-10] MEDS: POLYETHYLENE GLYCOL 3350 17 GM POWD.PACK PO SCH (09:21)
[2017-06-10] MEDS: BUSPIRONE HCL 5 MG TABLET PO SCH ×2 (09:21→20:11)
[2017-06-10] MEDS: PREGABALIN 50 MG CAPSULE PO SCH ×2 (09:23→20:11)
[2017-06-10] MEDS: TRIAMTERENE/HCTZ 1 EACH CAP PO SCH (18:35)
[2017-06-10] MEDS: MONTELUKAST SODIUM 10 MG TABLET PO SCH (20:11)
[2017-06-10] MEDS: HYDROXYZINE HCL 25 MG TABLET PO SCH (20:11)
[2017-06-10] MEDS: BENZTROPINE MESYLATE 0.5 MG TAB PO SCH (21:00)
[2017-06-11] MEDS: PANTOPRAZOLE SODIUM 40 MG TABLET PO SCH (06:02)
[2017-06-11] MEDS: PROPRANOLOL HCL 20 MG TABLET PO PRN (08:42)
[2017-06-11] MEDS: BUSPIRONE HCL 5 MG TABLET PO SCH ×2 (08:43→21:43)
[2017-06-11] MEDS: POLYETHYLENE GLYCOL 3350 17 GM POWD.PACK PO SCH (08:43)
[2017-06-11] MEDS: PREGABALIN 50 MG CAPSULE PO SCH ×2 (08:44→21:43)
[2017-06-11] MEDS: TRIAMTERENE/HCTZ 1 EACH CAP PO SCH (18:29)
[2017-06-11] MEDS: MONTELUKAST SODIUM 10 MG TABLET PO SCH (21:43)
[2017-06-11] MEDS: BENZTROPINE MESYLATE 0.5 MG TAB PO SCH (21:43)
[2017-06-11] MEDS: HYDROXYZINE HCL 25 MG TABLET PO SCH (21:43)
[2017-06-12] MEDS: PANTOPRAZOLE SODIUM 40 MG TABLET PO SCH (06:36)
[2017-06-12] MEDS: PROPRANOLOL HCL 20 MG TABLET PO PRN (06:40)
[2017-06-12] MEDS: IBUPROFEN 400 MG TABLET PO PRN (09:20)
[2017-06-12] MEDS: BUSPIRONE HCL 5 MG TABLET PO SCH ×2 (09:21→20:32)
[2017-06-12] MEDS: PREGABALIN 50 MG CAPSULE PO SCH ×2 (09:21→20:35)
[2017-06-12] MEDS: POLYETHYLENE GLYCOL 3350 17 GM POWD.PACK PO SCH (09:22)
[2017-06-12] MEDS: HYDROXYZINE HCL 25 MG TABLET PO SCH (20:31)
[2017-06-12] MEDS: MONTELUKAST SODIUM 10 MG TABLET PO SCH (20:32)
[2017-06-12] MEDS: TRIAMTERENE/HCTZ 1 EACH CAP PO SCH (20:32)
[2017-06-12] MEDS: BENZTROPINE MESYLATE 0.5 MG TAB PO SCH (20:32)
[2017-06-13] MEDS: PANTOPRAZOLE SODIUM 40 MG TABLET PO SCH (06:19)
[2017-06-13] MEDS: PROPRANOLOL HCL 20 MG TABLET PO PRN (06:21)
[2017-06-13] MEDS: POLYETHYLENE GLYCOL 3350 17 GM POWD.PACK PO SCH (08:22)
[2017-06-13] MEDS: BUSPIRONE HCL 5 MG TABLET PO SCH ×2 (08:22→20:02)
[2017-06-13] MEDS: PREGABALIN 50 MG CAPSULE PO SCH ×2 (08:25→20:05)
[2017-06-13] MEDS: TRIAMTERENE/HCTZ 1 EACH CAP PO SCH (18:37)
[2017-06-13] MEDS: HYDROXYZINE HCL 25 MG TABLET PO SCH (20:02)
[2017-06-13] MEDS: BENZTROPINE MESYLATE 0.5 MG TAB PO SCH (20:03)
[2017-06-13] MEDS: MONTELUKAST SODIUM 10 MG TABLET PO SCH (20:06)
[2017-06-14] MEDS: PANTOPRAZOLE SODIUM 40 MG TABLET PO SCH (06:06)
--- NOTE | 2017-06-14 08:08 | Discharge Summary ---
Discharge Summary - Discharge Sumary History of Present Illness: Patient originally admitted here several weeks ago with pneumonia. Developed abdominal bloating - CT showed SBO. He was transferred to [facility]. There the surgeon did not think he had SBO but instead an ileus. He responded well to NG tube. Stools have remained soft - last one was yesterday. Currently on miralax. Pneumonia resolving. Back to RA and off O2. Finishing Levaquin and Flagyl tonight. He did have maxzide added to his medications which has helped control BP and swelling. Feeling ok today - just weak. Will be admitted to SNF for PT/OT. Condition at Discharge: Stable Home Medications: Ambulatory Orders Medication Instructions Recorded Benztropine Mesylate 1 mg PO HS u2 04/19/17 Polyethylene Glycol 3350 [Miralax] 17 gm PO D 05/27/17 Propranolol HCl [Inderal] 20 mg PO TID PRN 05/27/17 Bisacodyl [Dulcolax] 10 mg PO DAILY PRN 06/06/17 Buspirone HCl [Buspar] 15 mg PO BID 06/06/17 Ibuprofen [Advil] 800 mg PO Q8 PRN 06/06/17 Paliperidone Palmitate [Invega 156 mg IM MONTH 06/06/17 Sustenna] Pregabalin [Lyrica] 150 mg PO BID 06/06/17 Triamterene/Hydrochlorothiazid 1 cap PO DAILY #30 capsule 06/13/17 [Triamterene-Hctz 37.5-25 mg Cp] Consultations this Visit: None Procedures this Visit: None Allergies/Adverse Reactions: Allergies Allergy/AdvReac Type Severity Reaction Status Date / Time acetaminophen Allergy Unknown Verified 05/27/17 17:02 aspirin Allergy Unknown Verified 05/27/17 17:02 haloperidol lactate Allergy Unknown Verified 05/27/17 17:02 lorazepam Allergy Unknown Verified 05/27/17 17:02 Patient Problems: Current Active Problems Problem Status Onset Weakness Acute Discharge Summary: Patient was admitted to SNF after admission to [facility] with SBO. He did well with PT/OT. Patient was overdue for Invega shot so his family was leary about letting him go home. He agreed to go to [facility]. He will get his Invega injection today. He will stay there a few days to get allow family and social work job titles to get his in home help set back up as well as get him set back up at [facility]. Hospital Course: Discharge Dx: Weakness. SBO - resolved. Schizophrenia. Bipolar 1. Disposition - [facility]
[2017-06-14] MEDS: POLYETHYLENE GLYCOL 3350 17 GM POWD.PACK PO SCH (09:57)
[2017-06-14] MEDS: BUSPIRONE HCL 5 MG TABLET PO SCH (09:58)
[2017-06-14] MEDS: PREGABALIN 50 MG CAPSULE PO SCH (09:58)
[2017-06-14] MEDS: ERGOCALCIFEROL (VITAMIN D2) 50,000 UNIT CAPSULE PO SCH (09:58)
[2017-06-14] MEDS: IBUPROFEN 400 MG TABLET PO PRN (10:01)
[2017-06-14 10:32] VITALS: BP 122/76
== END 2017-06-14 14:00 | DRG 948 ==
LOC: SOUTH 13:50
PROVIDERS: ADMIT Family Medicine; ATTEND Family Medicine
DX: R53.1 Weakness (principal); K56.7 Ileus, unspecified; F20.9 Schizophrenia, unspecified; F31.9 Bipolar disorder, unspecified; I10 Essential (primary) hypertension
CPT/HCPCS: 97110; 97112; 97116; 97161; 97165; 97530; 97535; A9270; Q0163

== ENCOUNTER 2017-06-14 14:00 | Inpatient (IN) | payer SELFPAY ==
[2017-06-14 10:32] VITALS: BP 122/76
--- NOTE | 2017-06-20 15:27 | Discharge Summary ---
DATE OF DISCHARGE: June 19, 2017 DISCHARGE DIAGNOSES: 1. Weakness. 2. Schizophrenia. 3. History of subarachnoid hemorrhage. 4. History of small bowel obstruction. 5. Bipolar disease. FOR HISTORY AND PHYSICAL: Please see Skilled admission. HOSPITAL COURSE: Patient was admitted to [facility] for a few days to let his Invega Sustenna injection start working, as he had been without this for some time and had some psychiatric issues. He received the injection and was doing better. He was discharged home with home health. While he was at [facility], he was started on Maxzide and therefore, his propranolol/HCTZ was changed just to propranolol. He was discharged home in good condition. CONDITION ON DISCHARGE: Good. DISCHARGE ACTIVITY: Ad ratna. DISCHARGE DIET: Regular. MEDICATIONS ON DISCHARGE: 1. BuSpar 15 mg b.i.d. 2. Omeprazole 40 mg daily. 3. Invega Sustenna 156 mg monthly IM. It was given on 06/14/17. 4. Lyrica 150 mg b.i.d. 5. Propranolol 20 mg t.i.d. 6. Maxzide 25/37.5 mg daily. 7. Benztropine 1 mg at night. 8. Hydroxyzine 25 mg at bedtime p.r.n. 9. Colace 100 mg b.i.d. p.r.n. for constipation. 10. Ibuprofen 800 mg every 8 hours p.r.n. pain. 11. Vitamin D 1.25 mg p.o. on only. He is to stop cetirizine, montelukast, bupropion, and propranolol/HCTZ. DISCHARGE INSTRUCTIONS: 1. Follow up with Dr. Noe in 1 month. 2. Follow up with [facility] as soon as possible. [facility]
== END 2017-06-19 11:00 | DRG 948 ==
LOC: ICF 14:00
PROVIDERS: ADMIT Family Medicine; ATTEND Family Medicine
DX: R53.1 Weakness (principal); F20.9 Schizophrenia, unspecified; I69.00 Unspecified sequelae of nontraumatic subarachnoid hemorrhage; K56.609 Unspecified intestinal obstruction, unspecified as to partial versus complete obstruction; F31.9 Bipolar disorder, unspecified

== ENCOUNTER 2018-08-07 13:19 | Outpatient (CLI) | payer OTHER ==
[2018-08-07 13:36] LABS: BASOPHILS % 0.4 (0.0-1.5); EOSINOPHILS % 1.5 % (0.0-6.8); MEAN CORPUSCULAR HEMOGLOBIN 30.8 pg (28.0-34.0); MONOCYTES % 7.2 % (0.0-11.0); NEUTROPHILS # 4.4 # k/uL (1.4-7.7)
[2018-08-07 14:01] LABS: eGFR (Non-African) > 60
== END 2018-08-07 13:30 ==
LOC: LAB 13:19
PROVIDERS: ATTEND Psychiatry & Neurology Psychiatry
DX: Z79.899 Other long term (current) drug therapy (principal); Z51.81 Encounter for therapeutic drug level monitoring
CPT/HCPCS: 36415; 80053; 80061; 83036; 84443; 85025

== ENCOUNTER 2019-03-05 13:13 | Outpatient (CLI) | payer OTHER ==
[2019-03-05 13:30] LABS: APPEARANCE,URINE CLEAR (CLEAR); COLOR,URINE YELLOW (YELLOW); OCCULT BLOOD,URINE NEGATIVE (NEGATIVE)
[2019-03-05 13:31] LABS: UROBILINOGEN URINE 0.2 Eu (0.2-1.0)
== END 2019-03-05 13:15 ==
LOC: LAB 13:13
PROVIDERS: ATTEND Family Medicine
DX: R39.15 Urgency of urination (principal)
CPT/HCPCS: 81002